=== PATIENT | female | born 1975 | race Caucasian/White ===

== ENCOUNTER 2024-05-22 08:14 | Outpatient (CLI) | payer OTHER, SELFPAY ==
[2024-05-22 13:28] LABS: Basophils Absolute Auto 0.1 K/mm3 (0.0-0.1); Eosinophils Absolute Auto 0.1 K/mm3 (0-0.3); Eosinophils Percent Auto 1.8 % (0-4.4); Hematocrit 39.8 % (37.0-47.0); Hemoglobin 12.5 g/dL (12.0-15.0); Immature Granulocyte Absolute 0.04 K/mm3 (0.00-0.031); Immature Granulocyte Percent A 0.5 % (0-0.5); Lymphocytes Absolute Auto 1.94 K/mm3 (0.9-3.2); Lymphocytes Percent Auto 24.8 % (18.3-44.2); Mean Corpuscular HGB Conc 31.4 g/dl (32-36); Mean Corpuscular Hemoglobin 29.3 pg (26-34); Mean Corpuscular Volume 93.2 fl (80-100); Mean Platelet Volume 11.6 fl (7.4-10.4); Monocytes Absolute Auto 0.5 K/mm3 (0.1-0.6); Monocytes Percent Auto 5.8 % (2.6-8.5); Neutrophils Absolute Auto 5.2 K/mm3 (1.3-6.7); Neutrophils Percent Auto 66.1 % (45.5-73.1); Platelet Count Result 268 k/mm3 (150-375); Red Blood Count 4.27 M/mm3 (4.2-5.4); Red Cell Distribution Width 12.7 % (11.5-14.5); White Blood Count 7.8 K/mm3 (4.5-10.0)
[2024-05-22 13:44] LABS: Alanine Aminotransferase 14 U/L (6-35); Alkaline Phosphatase 62 U/L (38-126); Anion Gap 12 mmol/L (4-12); Aspartate Amino Transferase 50 U/L (14-36); Bilirubin,Total 0.5 mg/dL (0.2-1.3); Blood Urea Nitrogen 13 mg/dL (7-17); Carbon Dioxide 22 mmol/L (22-30); Chloride 107 mmol/L (98-107); Cholesterol 216 mg/dL (0-200); Estimated Glomerular Filt Rate > 60; Glucose 101 mg/dL (65-110); HDL Direct 58 mg/dL; Potassium 4.5 mmol/L (3.4-5.0); Sodium 141 mmol/L (137-145); Triglycerides 113 mg/dL (<150)
[2024-05-22 13:56] LABS: LDL Cholesterol Direct 107 mg/dL
== END 2024-05-22 08:15 | disposition home or self-care (01) ==
LOC: ANHGOSHLAB 08:15
PROVIDERS: PCP Internal Medicine; Visit Provider Nurse Practitioner
DX: R51.9 Headache, unspecified (principal); R03.0 Elevated blood-pressure reading, without diagnosis of hypertension; E55.9 Vitamin D deficiency, unspecified
CPT/HCPCS: 36415; 80053; 80061; 82306; 84443; 85025

== ENCOUNTER 2024-06-13 08:47 | Outpatient (CLI) | payer OTHER, SELFPAY ==
--- NOTE | 2024-06-13 09:01 | ECHO_ITS ---
Patient Info Name: Didi Silvestre Age: 48 years : 1975 Gender: Female Ht: 68 in Wt: 195 lbs BSA: 2.08 m2 HR: 72 bpm Technical Quality: Good Exam Date: 06/13/2024 9:05 AM Exam Location: Echo Lab Patient Status: Outpatient Admit Date: 06/13/2024 Staff Ordering Physician: Araceli Mcclain NP Oil Expeller: Angelica Ardon RDCS Attending Provider: Araceli Mcclain NP Referring Physician: Sarahi SUBRAMANIAN; Exam Type: CA echo doppler color flow Study Info Indications I10 - Essential (primary) hypertension Complete two-dimensional, color flow and Doppler transthoracic echocardiogram is performed. Summary 1. Complete two-dimensional, color flow and Doppler transthoracic echocardiogram is performed. 2. Left ventricular chamber dimension is normal. 3. Left ventricular systolic function is normal, estimated at 60-65%. 4. The left ventricular diastolic function is grade I diastolic dysfunction. 5. E/e' 7 is not elevated. 6. Left atrial chamber dimension is mildly enlarged. 7. There is trace tricuspid valve regurgitation. 8. No pulmonary hypertension, estimated pulmonary arterial systolic pressure is 33 mmHg. Left Ventricle E/e' 7 is not elevated. Left ventricular chamber dimension is normal. Left ventricular systolic function is normal, estimated at 60-65%. The left ventricular diastolic function is grade I diastolic dysfunction. Right Ventricle Right ventricular systolic function is normal and with normal TAPSE 1.8 cm. Right ventricular chamber dimension is normal. Left Atria Left atrial chamber dimension is mildly enlarged. Right Atria Right atrial chamber dimension is normal. Aortic Valve The aortic valve is trileaflet. There is no aortic valve stenosis. There is no aortic valve regurgitation. Pulmonic Valve There is no pulmonic regurgitation. Mitral Valve There is no mitral valve stenosis. There is no mitral valve regurgitation. Tricuspid Valve There is trace tricuspid valve regurgitation. No pulmonary hypertension, estimated pulmonary arterial systolic pressure is 33 mmHg. Pericardium/Pleural There is no pericardial effusion. Inferior Vena Cava Normal inferior vena cava with >50% collapse upon inspiration consistent with normal right atrial pressure, 5 mmHg. Aorta The aortic root size at the sinus of Valsalva is normal. Left Ventricular Outflow Tract Name Value Normal LVOT 2D LVOT Diameter 1.9 cm LVOT Doppler LVOT Peak Gradient 5 mmHg LVOT Mean Gradient 3 mmHg LVOT VTI 26 cm LVOT VTI/AV VTI Ratio 0.8 LVOT Stroke Volume 72 ml LVOT CO 14.2 l/min LVOT CI 6.8 l/min/m2 Pulmonic Valve Name Value Normal PV Doppler PV Peak Gradient 8 mmHg Mitral Valve Name Value Normal MV Doppler MV Decel Maries 399 cm/s2 MV PHT 61 ms MV Area (PHT) 3.6 cm2 4.0-5.0 MV Diastolic Function MV E Peak Velocity 84 cm/s MV A Peak Velocity 88 cm/s MV E/A 1.0 MV Decel Time 210 ms MV Annular TDI MV E/e' (Septal) 9.1 <=8.0 MV E/e' (Lateral) 6.9 <=8.0 MV E/e' (Average) 8.0 Tricuspid Valve Name Value Normal TV Regurgitation Doppler TR Peak Velocity 264 cm/s TR Peak Gradient 25 mmHg Estimated PAP/RSVP RA Pressure 5 mmHg <=5 PA Systolic Pressure 33 mmHg <36 RV Systolic Pressure 33 mmHg <36 Aorta Name Value Normal Ascending Aorta Ao Root Diameter (MM) 3.2 cm Ao Root Diam Index (MM) 1.5 cm/m2 Aortic Valve Name Value Normal AV Doppler AV Peak Velocity 140 cm/s AV Peak Gradient 8 mmHg AV Mean Gradient 5 mmHg AV VTI 31 cm AV Area (Cont Eq VTI) 2.3 cm2 >=3.0 AV Area (Cont Eq Chaim) 2.1 cm2 AV Regurgitation 2D LVOT Area 2.8 cm2 Ventricles Name Value Normal LV Dimensions 2D/MM IVS Diastolic Thickness (2D) 1.0 cm 0.6-1.0 LVID Diastole (2D) 4.0 cm 3.8-5.2 LVIW Diastolic Thickness (2D) 0.8 cm 0.6-0.9 LVID Systole (2D) 3.0 cm 2.2-3.5 LVOT Diameter 1.9 cm LV Mass (2D Cubed) 114.23 g 67.00-162.00 LV Mass Index (2D Cubed) 55 g/m2 43-95 Relative Wall Thickness (2D) 0.40 LV Fractional Shortening/Ejection Fraction 2D/MM LV Fractional Shortening (2D) 27 % 27-45 LV EF (2D Teicholz) 53 % 54-74 LV Diastolic Volume (4C MOD) 74 ml LV EF (4C MOD) 60 % LV Diastolic Volume (2C MOD) 84 ml LV EF (2C MOD) 62 % LV Diastolic Volume (BP MOD) 79 ml 46-106 LV Diastolic Volume Index (BP MOD) 38 ml/m2 29-61 LV Systolic Volume (BP MOD) 31 ml 14-42 LV Systolic Volume Index (BP MOD) 15 ml/m2 8-24 LV EF (BP MOD) 61 % 54-74 LV Diastolic Length (4C) 7.7 cm LV Systolic Length (4C) 6.5 cm LV Stroke Volume (4C MOD) 45 ml Atria Name Value Normal LA Dimensions LA Dimension (MM) 3.2 cm 2.7-3.8 LA Volume (4C A-L) 70 ml LA Volume (BP A-L) 69 ml RA Dimensions RA Area (4C) 10.6 cm2 <=18.0 Report Signatures
--- OUTSIDE RECORDS SUMMARY | 2024-06-13 09:11 | XMS_ITS | Clinical Summary ---
Author Organization [facility] Address [address] [place] [address] Care Team Providers Care Soil Conservation Technician Name Role Phone Unavailable Primary Care Provider Unavailabl e Source Comments [facility],non-owned Affiliates and Associated Physician Practices is amultiple site organization consisting of ambulatory clinics and hospital sitesin [place], [place], [place] and [place]. This disclosure is being madepursuant to the Care Everywhere program and may not contain all information available regarding this patient. Last updated 17.[facility] Allergies No known active allergies Medications Be aware that medications may not be up to date on this document. Always verify current medications with the patient. No known medications Social History Tobacco Use Types Packs/Day Years Used Date Smoking Tobacco: Never Smokeless Tobacco: Never Alcohol Use Standard Drinks/Week Comments Never 0 (1 standard drink = 0.6 oz pur e alcohol) AUDIT-C Answer Date Recorded Frequency of Alcohol Consumption Never 06/06/2019 Average Number of Drinks Not on file 020 Frequency of Binge Drinking Not on file 05/19 Sex and Gender Information Value Date Recorded Sex Assigned at Not on file Gender Identity Not on file Sexual Orientation Not on file Last Filed Vital Signs Vital Sign Reading Time Taken Comments Blood Pressure 118/74 06/06/2019 9:28 AM CDT Pulse 74 06/06/2019 9:28 AM CDT Temperature 37.1 C (98.7 F) 06/06/2019 9:28 AM CDT Respiratory Rate 16 06/06/2019 9:28 AM CDT Oxygen Saturation 98% 06/06/2019 9:28 AM CDT Inhaled Oxygen Concentration - - Weight 85.3 kg (188 lb) 06/06/2019 9:28 AM CDT Height 172.7 cm (5' 8 ) 06/06/2019 9:28 AM CDT Body Mass Index 28.59 06/06/2019 9:28 AM CDT Plan of Treatment Health Maintenance Due Date Last Done Comments COLOGUARD (AGES 45-75) - COL ON CA SCREENING 1975 COLON MONITORING 1975 COLONOSCOPY - COLON CA SCREENING 1973 CT COLONOGRAPHY - COLON CA SCREENING 1975 Colorectal Cancer Screening 1975 FIT - COLON CA SCREENING 1975 FLEX SIG - COLON CA SCREENING 1975 LIPID TESTING 1975 MAMMOGRAM 1975 PAP SMEAR 1975 HIV SCREENING 1988 HEPATITIS C SCREENING 07/10/1991 DTAP/TDAP/TD VACCINES (1 - Tdap) 1992 HEPATITIS B VACCINE (1 of 3 - 19+ 3-dose series) 1992 SCREENING FOR DIABETES 06/06/2019 PNEUMOCOCCAL VACCINE 50+ (1 of 1 - PCV) 07/15/2023 ZOSTER VACCINE (1 of 2) 07/15/2023 COVID-19 VACCINE (1 - 2023-2 5 season) 2023 INFLUENZA VACCINE (#1) 2023 DEPRESSION SCREENING 03/21/2024 HIB VACCINE Aged Out No longer eligi ble based on patient's age to complete this topic HPV VACCINE Aged Out No longer eligi ble based on patient's age to complete this topic MENINGOCOCCAL (Group B) VACC INE SHARED DECISION-MAKING Aged Out No longer eligibl e based on patient's age to complete this topic MENINGOCOCCAL GROUPS A/C/Y/W VACCINE Aged Out No longer eligible b ased on patient's age to complete this topic PNEUMOCOCCAL VACCINE Aged Out No long er eligible based on patient's age to complete this topic
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
--- OUTSIDE RECORDS SUMMARY | 2024-06-13 09:11 | XMS_ITS | Referral Summary ---
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 Mass of breast 02/06/2015 Immunizations Immunization Administration Dates Next Due Influenza, Trivalent, IM (MDV) 12/18/2012 Social History Tobacco Use Types Packs/Day Years Used Date Smoking Tobacco: Former Cigarettes Q uit: 03/21/2010 Comments:Smoking History Pac ks/day: 0 Packs Alcohol Use Standard Drinks/Week Comments Yes 0 (1 standard drink = 0.6 oz pur e alcohol) Comments No Sex and Gender Information Value Date Recorded Sex Assigned at Not on file Legal Sex Female 11:52 PM SCHOOL LABORATORY TECHNICIAN Gender Identity Female 01/06/2023 3:09 PM CDT Sexual Orientation Straight 01/06/2023 3: 09 PM CDT Last Filed Vital Signs Vital Sign Reading [...] 08/25/2015 10:42 AM CDT Plan of Treatment Not on file Procedures Procedure Name Priority Date/Time Associated Diagnosis Comments SCREENING MAMMOGRAM BILATERAL W RODO Schedule Routine, Read Routine (OP Routine) 03/05/2024 11:50 AM SCHOOL LABORATORY TECHNICIAN Screening mammogram, encounter for SERUM HEPATITIS C AB Routine 06/01/2012 3:55 PM CDT from Last 3 Months or Most Recently Relevant to Health Maintenance Results * Screening Mammogram Bilateral W Rodo (03/05/2024 11:50 AM SCHOOL LABORATORY TECHNICIAN) Anatomical Region Laterality Modality Breast Bilateral Mammography 03/05/2024 1:39 PM SCHOOL LABORATORY TECHNICIAN Impressions 03/05/2024 1:39 PM SCHOOL LABORATORY TECHNICIAN No evidence of malignancy in either breast. FINAL ASSESSMENT: BI-RADS Category 1: Negative. RECOMMENDATION: Recommend return for annual screening mammogram in 12 months. Electronically signed by: Toyin Manzo M.D. Narrative 03/05/2024 1:39 PM SCHOOL LABORATORY TECHNICIAN EXAMINATION: BILATERAL SCREENING MAMMOGRAM COMPARISON: Dated back to 2014 TECHNIQUE: Full-field 2D and digital breast tomosynthesis (DBT) images were obtained. CAD was utilized. BREAST PARENCHYMAL COMPOSITION: There are scattered areas of fibroglandular density. FINDINGS: There is no suspicious mass, calcification, or distortion in either breast. us Self Screening Mammogram IMG MAMMO PROCEDURES Fi nal Result * Serum Hepatitis C ab (06/01/2012 3:55 PM CDT) HCV ab Negative Negative HISTORICAL RESULTS Serum 06/01/2012 3:55 PM CDT Alice Olmedo MD LAB BLOOD ORDERABLE S Final Result HISTORICAL RESULTS from Last 3 Months or Most Recently Relevant to Health Maintenance Insurance [employer] Member Subscriber Plan / Payer (Ef fective 2018-Present) Name:Didi Silvestre Relation to Subscriber:Self Name:Didi Silvestre Payer ID:[id number] ([facility]) Group ID:Not on file Type:[facility] Address: [address] [facility] CHOICE PLUS [facility] CHO[facility] PLUS [place] [phone] Care Teams Small Products Ii Assembler Relationship Specialty Start Date End Date Marcelle Vann PA PCP - General 11/27/19
== END 2024-06-13 08:48 | disposition home or self-care (01) ==
PROVIDERS: PCP Internal Medicine; Visit Provider Nurse Practitioner
DX: I10 Essential (primary) hypertension (principal)
CPT/HCPCS: 93306